=== PATIENT | female | born 1955 | race Caucasian/White ===

== ENCOUNTER 2022-04-30 12:02 | Inpatient (IN) | payer MEDICAID ==
[~2022-04-30] VITALS: Ht 165.1 cm; Wt 89.4 kg
[2022-04-30 14:39] LABS: INR 1.4; PROTHROMBIN TIME 14.2 sec (9.6-11.0)
[2022-04-30 14:41] LABS: CHLORIDE 86 mEq/L (98-107)
[2022-04-30 14:59] LABS: BASOPHILS % 1.2 % (0.0-2.0); EOSINOPHILS % 1.1 % (0.0-5.0); HEMATOCRIT. 35.1 % (36.0-48.0); HEMOGLOBIN. 12.5 g/dL (12.0-16.0); LYMPHOCYTES % 19.1 % (20.0-50.0); MEAN CORPUSCULAR HEMOGLOBIN 34.7 pg (28.0-32.0); MEAN CORPUSCULAR VOLUME 97.1 fL (81.0-99.0); MEAN PLATELET VOLUME 10.4 fl (7.4-10.4); MONOCYTES % 10.9 % (2.0-8.0); NEUTROPHILS % 67.7 % (40.0-76.0); PLATELET 146 x1000/uL (130-400); RED BLOOD CELL COUNT 3.62 mill/uL (4.2-5.4); RED CELL DISTRIBUTION WIDTH 14.6 % (11.6-14.6)
[2022-04-30 16:09] LABS: TOTAL IRON BINDING CAPACITY 312 ug/dL (250-450)
[2022-04-30] MEDS: KCL 20MEQ/100ML PREMIX 100 ML IV SCH ×2 (16:45→19:00)
[2022-04-30] MEDS: PANTOPRAZOLE SODIUM 40 MG/VIAL IV SCH (16:45)
[2022-04-30] MEDS: LACTULOSE 20G/30ML UDC PO SCH (16:45)
[2022-04-30 21:35] VITALS: BP 141/76
[2022-04-30] MEDS ORDERED: HYDR50TA MT (22:56)
[2022-04-30] MEDS ORDERED: LEVO25TA7 PO (22:56)
[2022-04-30] MEDS ORDERED: LISI40TA13 MT (22:56)
[2022-04-30] MEDS ORDERED: GABA-532 PO (22:56)
[2022-04-30] MEDS ORDERED: AMLO5TAB88 MT (22:56)
[2022-04-30] MEDS ORDERED: ATOR40TA70 MT (22:56)
[2022-04-30] MEDS ORDERED: METF-873 PO (22:56)
[2022-04-30 23:30] VITALS: BP 137/59
[2022-04-30] MEDS ORDERED: KCL 10MEQ/50ML PREMIX 50 ML IV NR (23:45)
[2022-05-01] MEDS ORDERED: CLONIDINE 0.1MG TABLET PO PRN (00:45)
[2022-05-01] MEDS ORDERED: ONDANSETRON HCL 4MG/2ML INJ IV PRN (00:45)
[2022-05-01 04:00] VITALS: BP 116/68
[2022-05-01] MEDS: LEVOTHYROXINE SODIUM 25MCG TABLET PO SCH (06:23)
[2022-05-01] MEDS: BLOOD SUGAR DIAGNOSTIC STRIP TEST SCH ×4 (06:23→21:00)
[2022-05-01] MEDS: INSULIN LISPRO 100 UNITS/ML SUBCUT SCH ×4 (06:24→21:00)
[2022-05-01] MEDS ORDERED: DEXTROSE 50% WATER 50ML SYRINGE IV PRN (06:30)
[2022-05-01 07:21] LABS: BASOPHILS % 1.2 % (0.0-2.0); EOSINOPHILS % 4.2 % (0.0-5.0); HEMATOCRIT. 34.2 % (36.0-48.0); HEMOGLOBIN. 12.1 g/dL (12.0-16.0); LYMPHOCYTES % 33.1 % (20.0-50.0); MEAN CORPUSCULAR HEMOGLOBIN 34.4 pg (28.0-32.0); MEAN CORPUSCULAR VOLUME 97.1 fL (81.0-99.0); MEAN PLATELET VOLUME 9.9 fl (7.4-10.4); MONOCYTES % 14.3 % (2.0-8.0); NEUTROPHILS % 47.2 % (40.0-76.0); PLATELET 139 x1000/uL (130-400); RED BLOOD CELL COUNT 3.52 mill/uL (4.2-5.4); RED CELL DISTRIBUTION WIDTH 14.7 % (11.6-14.6)
[2022-05-01 07:30] LABS: CHLORIDE 91 mEq/L (98-107)
[2022-05-01 08:00] VITALS: BP 119/77
[2022-05-01] MEDS ORDERED: SODIUM BICARBONATE 4% (2.4MEQ) 5ML VIAL IV ONE (08:07)
[2022-05-01] MEDS ORDERED: LIDOCAINE HCL 1% 30ML VIAL (10MG/ML) ONE (08:07)
[2022-05-01] MEDS: LACTULOSE 20G/30ML UDC PO SCH (10:49)
[2022-05-01] MEDS: LISINOPRIL 40MG TABLET PO SCH (10:49)
[2022-05-01] MEDS: PANTOPRAZOLE SODIUM 40 MG/VIAL IV SCH (10:49)
[2022-05-01] MEDS: AMLODIPINE 5MG TABLET PO SCH (10:50)
[2022-05-01 12:00] VITALS: BP 121/71
[2022-05-01 15:09] LABS: HEPATITIS B SURFACE ANTIGEN NEGATIVE
[2022-05-01 15:15] LABS: CLARITY URINE CLEAR (CLEAR); COLOR URINE YELLOW (YELLOW); KETONES URINE NEGATIVE (NEGATIVE); LEUKOCYTE ESTERASE URINE 2+ (NEGATIVE); NITRITE URINE NEGATIVE (NEGATIVE); OCCULT BLOOD URINE NEGATIVE (NEGATIVE); PROTEIN URINE NEGATIVE (NEGATIVE); SPECIFIC GRAVITY URINE 1.008 (1.005-1.030)
[2022-05-01 16:00] VITALS: BP 129/69
[2022-05-01] MEDS ORDERED: POTASSIUM CHLORIDE 10MEQ TABLET SR PO NR (16:00)
[2022-05-01 20:00] VITALS: BP 124/68
[2022-05-01] MEDS: KCL 20MEQ/100ML PREMIX 100 ML IV SCH (21:00)
[2022-05-01] MEDS: ATORVASTATIN CALCIUM 40MG TABLET PO SCH (21:00)
[2022-05-01] MEDS: GABAPENTIN 300MG CAPSULE PO SCH (21:00)
[2022-05-01 23:51] LABS: CREATINE KINASE 486 IU/L (26-192)
[2022-05-02] VITALS: BP 126/68
[2022-05-02 04:00] VITALS: BP 128/69
[2022-05-02 06:36] LABS: HEMATOCRIT. 29.8 % (36.0-48.0); HEMOGLOBIN. 10.8 g/dL (12.0-16.0); MEAN CORPUSCULAR HEMOGLOBIN 34.8 pg (28.0-32.0); MEAN CORPUSCULAR VOLUME 96.5 fL (81.0-99.0); PLATELET 113 x1000/uL (130-400); RED BLOOD CELL COUNT 3.09 mill/uL (4.2-5.4); RED CELL DISTRIBUTION WIDTH 14.4 % (11.6-14.6)
[2022-05-02] MEDS: LEVOTHYROXINE SODIUM 25MCG TABLET PO SCH (07:03)
[2022-05-02] MEDS: BLOOD SUGAR DIAGNOSTIC STRIP TEST SCH ×4 (07:03→20:56)
[2022-05-02] MEDS: INSULIN LISPRO 100 UNITS/ML SUBCUT SCH ×4 (07:03→20:56)
[2022-05-02 08:00] VITALS: BP 106/64
[2022-05-02] MEDS ORDERED: POTASSIUM CHLORIDE 20MEQ TABLET SR PO NR (08:00)
[2022-05-02] MEDS: AMLODIPINE 5MG TABLET PO SCH (08:54)
[2022-05-02] MEDS: LISINOPRIL 40MG TABLET PO SCH (08:54)
[2022-05-02] MEDS: LACTULOSE 20G/30ML UDC PO SCH ×3 (08:55→20:55)
[2022-05-02] MEDS: PANTOPRAZOLE SODIUM 40 MG/VIAL IV SCH (08:55)
[2022-05-02 09:05] LABS: PLATELET ESTIMATE DECREASED
[2022-05-02 12:00] VITALS: BP 111/67
[2022-05-02 16:00] VITALS: BP 113/58
[2022-05-02 20:00] VITALS: BP 113/60
[2022-05-02] MEDS: GABAPENTIN 300MG CAPSULE PO SCH (20:55)
[2022-05-02] MEDS: ATORVASTATIN CALCIUM 40MG TABLET PO SCH (20:55)
[2022-05-03] VITALS: BP 104/48
[2022-05-03 04:00] VITALS: BP 106/50
[2022-05-03] MEDS: BLOOD SUGAR DIAGNOSTIC STRIP TEST SCH ×2 (06:17→11:59)
[2022-05-03] MEDS: INSULIN LISPRO 100 UNITS/ML SUBCUT SCH ×2 (06:17→11:59)
[2022-05-03] MEDS: LEVOTHYROXINE SODIUM 25MCG TABLET PO SCH (06:17)
[2022-05-03] MEDS: LACTULOSE 20G/30ML UDC PO SCH ×2 (06:17→12:24)
[2022-05-03 06:51] LABS: HEMATOCRIT. 29.3 % (36.0-48.0); HEMOGLOBIN. 10.5 g/dL (12.0-16.0); MEAN CORPUSCULAR HEMOGLOBIN 34.9 pg (28.0-32.0); MEAN PLATELET VOLUME 9.7 fl (7.4-10.4); PLATELET 113 x1000/uL (130-400); RED BLOOD CELL COUNT 3.02 mill/uL (4.2-5.4); RED CELL DISTRIBUTION WIDTH 14.5 % (11.6-14.6)
[2022-05-03 08:00] VITALS: BP 105/50
[2022-05-03 08:05] LABS: PLATELET ESTIMATE DECREASED
[2022-05-03] MEDS: AMLODIPINE 5MG TABLET PO SCH (08:17)
[2022-05-03] MEDS: LISINOPRIL 40MG TABLET PO SCH (08:18)
[2022-05-03] MEDS: PANTOPRAZOLE SODIUM 40 MG/VIAL IV SCH (08:18)
[2022-05-03] MEDS ORDERED: SPIRONOLACTONE 50MG TABLET PO SCH (09:00)
[2022-05-03] MEDS ORDERED: POTASSIUM CHLORIDE 20MEQ/PACKET PO NR (10:30)
[2022-05-03 11:49] VITALS: BP 99/50
[2022-05-03] MEDS ORDERED: ALD50 PO (13:52)
[2022-05-03] MEDS ORDERED: GLIP5TAB12 MT (13:52)
[2022-05-03 14:09] VITALS: BP 103/59
[2022-05-03 15:56] VITALS: BP 116/56
[2022-05-04 10:07] LABS: ANTI-NUCLEAR ANTIBODIES DIRECT Positive (Negative)
[2022-05-05 17:11] LABS: ALDOLASE 7.9 U/L (3.3-10.3)
[2022-05-06 13:06] LABS: ACTIN (SMOOTH MUSCLE) ANTIBODY 62 Units (0-19); MITOCHONDRIAL M2 AB 52.8 Units (0.0-20.0)
== END 2022-05-03 16:00 | disposition home or self-care (01) | DRG 280 ==
LOC: ER 12:02 → 8WST 16:57 → EDBEDREQ 17:02 → EDBEDREQTM 17:02 → ENRESERV 20:12
PROVIDERS: ADMIT Internal Medicine; ATTEND Internal Medicine
PROC: 0W9G3ZZ Drainage of Peritoneal Cavity, Percutaneous Approach (ICD-10-PCS; principal; 2022-05-01)
DX: K70.31 Alcoholic cirrhosis of liver with ascites (principal); K76.6 Portal hypertension; M62.82 Rhabdomyolysis; E72.4 Disorders of ornithine metabolism; E87.1 Hypo-osmolality and hyponatremia; E88.09 Other disorders of plasma-protein metabolism, not elsewhere classified; D64.9 Anemia, unspecified; E11.9 Type 2 diabetes mellitus without complications; E87.6 Hypokalemia; I10 Essential (primary) hypertension; E80.6 Other disorders of bilirubin metabolism; R74.01 Elevation of levels of liver transaminase levels; Z79.899 Other long term (current) drug therapy; Z98.51 Tubal ligation status
CPT/HCPCS: 36415; 49083; 74176; 76700; 80048; 80053; 80076; 81003; 82085; 82140; 82270; 82550; 82607; 82728; 82746; 82962; 83036; 83516; 83540; 83550; 83605; 83880; 84484; 85025; 85044; 86038; 86705; 86709; 86803; 87340; 87426; 93306; 99285; C9113; C9803; J1815; J3480; J3490

== ENCOUNTER 2022-09-29 15:37 | Emergency (ER) | payer MEDICAID ==
[~2022-09-29] VITALS: Ht 165.1 cm; Wt 95.0 kg
[~2022-09-29 15:37] MED LIST: ALD50 PO; AMLO5TAB88 MT; ATOR40TA70 MT; GABA-532 PO; GLIP5TAB12 MT; HYDR50TA MT; LEVO25TA7 PO; LISI40TA13 MT; METF-873 PO
[2022-09-29 15:47] VITALS: BP 137/70
== END 2022-09-29 18:55 | disposition left against medical advice (07) ==
LOC: ER 15:37
DX: Z53.21 Procedure and treatment not carried out due to patient leaving prior to being seen by health care provider (principal); R94.31 Abnormal electrocardiogram [ECG] [EKG]; E11.9 Type 2 diabetes mellitus without complications; I10 Essential (primary) hypertension; E03.9 Hypothyroidism, unspecified; K74.60 Unspecified cirrhosis of liver; Z98.890 Other specified postprocedural states
CPT/HCPCS: 93005